=== PATIENT | male | born 1995 | race African-American/Black ===

== ENCOUNTER → 2024-02-17 | Emergency (ER) | payer OTHER ==
[~2024-02-17] VITALS: Ht 185.4 cm; Wt 134.5 kg
[~2024-02-17] MED LIST: ALBU18HF12 IH; BENZ-227 PO; OXYM15SP63 NASAL
[2024-02-17 11:03] VITALS: TEMP 98.6
[2024-02-17 11:19] LABS: COVID AG,FIA SOURCE NASAL SWAB
[2024-02-17 11:47] LABS: RAPID GROUP A STREP NEGATIVE (NEGATIVE)
[2024-02-17 11:50] LABS: SARS-COV2 (COVID) ANTIGEN,FIA Negative (Negative)
[2024-02-17 11:51] LABS: INFLUENZA TYPE A NEGATIVE FOR TYPE A (NEGATIVE); INFLUENZA TYPE B NEGATIVE FOR TYPE B (NEGATIVE)
[2024-02-17 13:52] VITALS: BP 132/71; PULSE 89; RESP 18; O2SAT 96
== END | disposition still patient (30) ==
LOC: EMS 10:42
DX: J06.9 Acute upper respiratory infection, unspecified (principal); F17.210 Nicotine dependence, cigarettes, uncomplicated; Z20.822 Contact with and (suspected) exposure to COVID-19
CPT/HCPCS: 71045; 87430; 87804; 99284